=== PATIENT | female | born 1975 | race Two or more races ===

== ENCOUNTER 2023-07-19 22:21 | Inpatient (IN) | payer OTHER ==
[~2023-07-19] VITALS: Ht 152.4 cm; Wt 59.0 kg
[2023-07-20 00:19] LABS: HEMATOCRIT 37.6 % (36.0-45.00); HEMOGLOBIN 12.8 g/dL (12.0-15.00); MEAN CELL VOLUME 87.6 fL (80.00-100.00); MEAN CORPUSCULAR HEMOGLOBIN 29.8 pg (27.00-32.0); PLATELET COUNT 368 K/uL (150-450); RED BLOOD COUNT 4.29 M/uL (4.00-6.00); RED CELL DISTRIBUTION WIDTH 13.2 % (11.5-14.5)
[2023-07-20 00:32] LABS: INR 0.99; PARTIAL THROMBOPLASTIN TIME 24.8 SECONDS (22.0-34.0); PROTHROMBIN TIME 10.4 SECONDS (9.0-11.5)
[2023-07-20 00:33] LABS: CALCIUM 9.7 mg/dL (8.5-10.1); CREATININE SERUM 0.72 mg/dL (0.55-1.02); GFR 86.45; POTASSIUM 3.22 mEq/L (3.5-5.1)
[2023-07-20 11:50] LABS: URINE APPEARANCE Clear; URINE BILIRRUBIN Negative (NEGATIVE); URINE BLOOD Negative; URINE COLOR Yellow; URINE GLUCOSE Negative (NEGATIVE); URINE LEUKOCYTE Negative; URINE NITRATE Negative; URINE PROTEIN Trace (NEGATIVE); URINE UROBILINOGEN 0.2 E.U./dl
[2023-07-20 11:51] LABS: URINE BACTERIA 2187.7 uL (0.0-1933); URINE EPITHELIAL CELLS 56.5 uL (0.0-38.8); URINE RBC 74.1 uL (0.0-20.8); URINE WBC 10.3 uL (0.0-23.2)
[2023-07-21 06:47] LABS: HEMATOCRIT 29.7 % (36.0-45.00); HEMOGLOBIN 10.3 g/dL (12.0-15.00); MEAN CELL VOLUME 89.3 fL (80.00-100.00); MEAN CORPUSCULAR HGB CONC 34.7 g/dl (32.0-36.0); PLATELET COUNT 249 K/uL (150-450); RED BLOOD COUNT 3.32 M/uL (4.00-6.00); RED CELL DISTRIBUTION WIDTH 13.2 % (11.5-14.5)
== END 2023-07-22 11:48 | disposition left against medical advice (07) | DRG 390 ==
LOC: ER 22:21 → SURH 07-20 20:47
PROVIDERS: General Practice; ADMIT Colon & Rectal Surgery; ATTEND Colon & Rectal Surgery
DX: K56.609 Unspecified intestinal obstruction, unspecified as to partial versus complete obstruction (principal)